=== PATIENT | male | born 1970 | race Two or more races ===

== ENCOUNTER → 2018-02-04 | Outpatient (CLI) | payer BC ==
--- NOTE | 2018-02-04 14:59 | US ---
EXAMINATION TYPE: US scrotum with doppler. Grayscale and color Doppler Duplex imaging performed of brandy lomax scrotum. DATE OF EXAM: 02/04/2018 COMPARISON: CT abdomen and pelvis June 11, 2015 CLINICAL HISTORY: Left Scrotal Mass N50.9. EXAM MEASUREMENTS: TESTICLES: Right Testicle: 3.9 x 2.1 x 2.7 cm Left Testicle: 4.0 x 2.1 x 2.5 cm EPIDIDYMIS HEAD: Right Epididymis: 1.1cm Left Epididymis: 0.8 cm Doppler performed to assess for testicular vascularity; good bilateral color flow and waveforms are s een. 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 Large scrotal sac, some technical difficulties. There appears to be a large right spermatocele measuring 4.4 x 2.7 x 3.6cm. There are at least moderate size bilateral scrotal fluid collection or hydroceles. There is prominent cystic change in the left epididymis which could reflect known spermatocele. No worrisome intratesti cular mass is present. Comparison views show symmetric blood flow to both testicles. IMPRESSION: As above
== END ==
LOC: RADUSWWP 10:05
PROVIDERS: ATTEND Internal Medicine
DX: N43.3 Hydrocele, unspecified (principal)
CPT/HCPCS: 76870; 93975

== ENCOUNTER → 2018-08-07 | Outpatient (CLI) | payer BC ==
--- NOTE | 2018-08-07 13:10 | MR ---
EXAMINATION TYPE: MR angio head wo con DATE OF EXAM: 08/07/2018 COMPARISON: NONE HISTORY: Cerebral aneurysm / Headache/ Family history TECHNIQUE: Utilizing 3-D [id number] intracranial MRA of the [place] of [place] was performed. FINDINGS: The vertebrobasilar and carotid systems are patent. There is no sizable aneurysm or vascular malform ation. Left vertebral artery is dominant. Posterior cerebral artery in the right originates from the anterior circulation. IMPRESSION: 1. No evidence of vascular malformation or sizable aneurysm.
== END ==
LOC: RADMRIMAIN 12:05
PROVIDERS: ATTEND Internal Medicine
DX: R51 Headache (principal)
CPT/HCPCS: 70544